=== PATIENT | female | born 1995 | race Caucasian/White ===

== ENCOUNTER 2020-08-11 16:10 | Emergency (ER) | payer OTHER ==
[~2020-08-11] VITALS: Ht 170.2 cm; Wt 77.1 kg
--- NOTE | 2020-08-11 16:30 | NUR ---
severe dizziness after using crystal meth today; it has been a while since she used meth (last use 09/2019). Patient a/ox4, breathing even and unlabored, no sob noted, sts she's feeling anxious. Needs attended. Ambulatory with steady gait.
[2020-08-11] MEDS ORDERED: LORAZEPAM INJ 2 MG/ML VIAL ONE (16:43)
[2020-08-11] MEDS: IV NS 0.9% 1,000 ML BAG IV ONE (16:52)
[2020-08-11] MEDS: LORAZEPAM INJ 2 MG/ML VIAL IV ONE (16:52)
--- NOTE | 2020-08-11 18:08 | NUR ---
Patient a/ox4, breathing even and unlabored, no sob noted, ambulatory with steady gait. IV removed. Catheter intact and site benign. Pressure and 4x4 applied to site. No bleeding noted.Patient discharged to home in stable condition. Written and verbal after care instructions given. Patient verbalizes understanding of instruction.
[2020-08-11 18:09] VITALS: BP 147/80
== END 2020-08-11 18:10 | disposition home or self-care (01) ==
LOC: ER 16:13
DX: F15.90 Other stimulant use, unspecified, uncomplicated (principal); R42 Dizziness and giddiness; E86.0 Dehydration; R00.0 Tachycardia, unspecified
CPT/HCPCS: 93005; 96361; 96374; 99283; J2060; J7030